=== PATIENT | female | born 2000 | race Caucasian/White ===

== ENCOUNTER → 2019-06-28 | Outpatient (CLI) | payer BC ==
[~2019-06-28] MED LIST: CEPH500T PO; IOHEXOL 350 MG/ML 100 ML VIAL. IV ONE
[2019-06-28 18:32] LABS: CREATININE 0.7 mg/dL (0.6-1.0); GFR 106.7; POTASSIUM 3.5 mmol/L (3.5-5.1)
--- NOTE | 2019-06-28 19:01 | RAD ---
EXAM: CT chest with contrast - pulmonary embolus protocol CLINICAL HISTORY: Left-sided chest pain COMPARISON: None. TECHNIQUE: CT of the chest following the administration of intravenous contrast during the pulmonary arterial phase. Axial, coronal and sagittal reformatted images were generated including MIP images. ---PQRS compliance statement - One or more of the following individualized dose reduction techniques were utilized for this study: 1. Automated exposure control 2. Adjustment of the mA and/or kV according to patient size 3. Use of iterative reconstruction technique--- FINDINGS: CHEST: Diagnostic quality: Adequate. Pulmonary emboli: None seen Right heart strain: None Pulmonary arteries: Normal in caliber. Heart is not enlarged. No pericardial effusion. No pleural effusion or pneumothorax. No suspicious lung nodule or mass is seen. No thoracic lymphadenopathy. Mild pectus deformity of the chest wall. Visualized Upper abdomen: Unremarkable Bones: Evaluation of the osseous structures limited given MIP reconstructions. Bone island is seen within T12 vertebral body. No aggressive osseous lesion is seen. IMPRESSION: 1. No evidence for acute pulmonary embolus. 2. No suspicious lung nodule, mass or focal parenchymal airspace opacity is seen. Electronically signed by: Lloyd Smith MD (06/28/2019 6:58 PM) [facility] [place]
== END | disposition home or self-care (01) ==
LOC: CT 17:28
PROVIDERS: ATTEND Family Medicine
DX: R07.1 Chest pain on breathing (principal)
CPT/HCPCS: 36415; 71275; 80048; Q9967

== ENCOUNTER 2021-04-28 16:03 | Emergency (ER) | payer BC, OTHER ==
[~2021-04-28] VITALS: Ht 157.5 cm; Wt 45.0 kg
[2021-04-28 16:03] VITALS: BP 106/63
[~2021-04-28 16:03] MED LIST changes: -IOHEXOL 350 MG/ML 100 ML VIAL. IV ONE
--- NOTE | 2021-04-28 16:15 | PHYS DOC ---
Past History Past Medical History: No Pertinent History, Ovarian Cyst, Other Past Surgical History: Other Smoking: Non-smoker Alcohol Use: None Drug Use: None Adult General HPI HPI Patient is an otherwise healthy 21-year-old female presents with dry cough for the last 2 to 3 weeks. States she seen her primary care physician and has not came up with an answer. Denies any recent traumas, travels, illnesses, fevers, chest pain, shortness of breath, abdominal pain, nausea, vomiting, dysuria, hematuria, blood in the stool. States she is never smoked cigarettes or anything else. Denies any known asthma or chemical exposures. States she has tried some cough medicine at home from [facility] which did seem to help a little. States she may have a little bit of heartburn. States she does have seasonal allergies as well. Review of Systems Review of Systems Review of systems otherwise unremarkable except noted in HPI Allergies Allergies Allergies Coded Allergies Type Severity Reaction Last Updated Verified No Known Drug Allergies 05/28/15 No Physical Exam Physical Exam Constitutional: Well developed, well nourished, no acute distress, non-toxic appearance. [] HENT: Normocephalic, atraumatic, bilateral external ears normal, oropharynx moist, no oral exudates, nose normal. [] Eyes: conjunctiva normal, no discharge. [] Neck: Normal range of motion, no tenderness, supple, no stridor. [] Cardiovascular:Heart rate regular rhythm, no murmur [] Lungs & Thorax: Bilateral breath sounds clear to auscultation [] Abdomen: soft, no tenderness, no masses, no pulsatile masses. [] Skin: Warm, dry, no erythema, no rash. [] Back: No tenderness, no CVA tenderness. [] Extremities: No tenderness, no cyanosis, no clubbing, ROM intact, no edema. [] Neurologic: Alert and oriented X 3, no focal deficits noted. [] Psychologic: Affect normal, judgement normal, mood normal. [] EKG EKG [] Radiology/Procedures Radiology/Procedures [] Heart Score C/O Chest Pain: No Risk Factors: Risk Factors: DM, Current or recent (<one month) smoker, HTN, HLP, family history of CAD, obesity. Risk Scores: Risk Factors: DM, Current or recent (<one month) smoker, HTN, HLP, family history of CAD, obesity. Course & Med Decision Making Course & Med Decision Making Patient is a 21-year-old female who presents with cough Vital signs not concerning. Physical exam noted above. Chest x-ray not concerning for pneumonia. Given patient's history of seasonal allergies, dry cough in length, discussed differential of GERD versus postnasal drip and seasonal type allergy etiologies. Given steroids and breathing treatment here in the ED. Advised on albuterol use at home. Advised on [id number] medicines as well including medicines for allergies, and NyQuil/DayQuil/Benadryl. Advised to follow-up in the morning with primary care physician to discuss ED visit. Gave return precautions to the ED. Patient grateful, verbalized understanding and agreed with plan of discharge. [] Dragon Disclaimer Dragon Disclaimer This electronic medical record was generated, in whole or in part, using a voice recognition dictation system. Departure Departure: Impression: Primary Impression: Cough Disposition: 01 HOME / SELF CARE / HOMELESS Condition: GOOD Referrals: DANYELL GANNON MD (PCP) Patient Instructions: Cough, Adult Additional Instructions: Thank you for coming into the emergency department tonight and allowing us to take care of you. Please read the attached information carefully to go back over some of the things we discussed. You can continue [id number] heartburn medicine, cough and cold medicine and your albuterol inhaler as we dis cussed. Please follow-up in the morning with your primary care physician to update on your ED visit and set up a follow-up as soon as you can. Please come back with new or concerning symptoms as we discussed. BUBBA GLASER MD Apr 28, 2021 16:15
--- NOTE | 2021-04-28 16:27 | RAD ---
Exam: Chest one view INDICATION: Cough, shortness of breath TECHNIQUE: Frontal view of the chest Comparisons: None FINDINGS: The cardiomediastinal silhouette and pulmonary vessels are within normal limits. The lung and pleural spaces are clear. IMPRESSION: No acute cardiopulmonary process. Electronically signed by: Nena Velasquez MD (04/28/2021 4:25 PM) [facility]
[2021-04-28] MEDS ORDERED: ALBUTEROL SULFATE 8GM INHALER. INH ONE (16:45)
[2021-04-28] MEDS ORDERED: DEXAMETHASONE 4 MG TABLET PO ONE (16:45)
== END 2021-04-28 16:59 | disposition home or self-care (01) ==
LOC: ER 16:03
DX: R05.9 Cough, unspecified (principal)
CPT/HCPCS: 71045; 94640; 99283; J8540; 94664